=== PATIENT | male | born 1940 | race Caucasian/White ===

== ENCOUNTER 2018-05-19 11:30 | Day surgery (SDC) | payer MEDICARE, OTHER ==
[2018-05-19] VITALS (14 sets, daily range): BP systolic 126–151; BP diastolic 67–86
[~2018-05-19] VITALS: Ht 170.2 cm; Wt 71.9 kg
[2018-05-19] MEDS ORDERED: diphenhydrAMINE 25mg capsule PO PRN (11:50)
[2018-05-19] MEDS ORDERED: normal saline 1,000 ML IV SCH (11:50)
[2018-05-19] MEDS ORDERED: NIAC500T5 PO (12:09)
[2018-05-19] MEDS ORDERED: SIMV40TA4 PO (12:09)
[2018-05-19] MEDS ORDERED: LABE100T5 PO (12:09)
[2018-05-19] MEDS ORDERED: NIFE90TA44 PO (12:09)
[2018-05-19] MEDS ORDERED: BENA40TA73 PO (12:09)
[2018-05-19] MEDS ORDERED: POTA10TA10 PO (12:09)
[2018-05-19] MEDS ORDERED: IRON (12:09)
[2018-05-19] MEDS ORDERED: ASPI-611 PO (12:09)
[2018-05-19 12:47] LABS: BASOPHILS % (AUTO) 0.4 % (0-1); EOSINOPHILS # (AUTO) 0.3 X10'3 (0-0.9); EOSINOPHILS % (AUTO) 5.4 % (0-6); HEMATOCRIT 42.1 % (42.0-52.0); HEMOGLOBIN 14.1 g/dl (14.0-17.9); LYMPHOCYTES # (AUTO) 0.2 X10'3 (1.1-4.8); LYMPHOCYTES % (AUTO) 3.8 % (21-51); MEAN CORPUSCULAR HEMOGLOBIN 32.2 PG (27.0-31.0); MEAN CORPUSCULAR HGB CONC 33.4 g/dL (33.0-36.5); MEAN CORPUSCULAR VOLUME 96.5 FL (78-98); MEAN PLATELET VOLUME 8.1 FL (7.4-10.4); MONOCYTES # (AUTO) 0.8 X10'3 (0-0.9); MONOCYTES % (AUTO) 15.1 % (2-12); NEUTROPHILS # (AUTO) 3.9 X10'3 (1.8-7.7); NEUTROPHILS % (AUTO) 75.3 % (42-75); PLATELET COUNT 133 X10'3 (140-440); RED BLOOD COUNT 4.36 X10'6 (4.70-6.10); RED CELL DISTRIBUTION WIDTH 17.2 % (11.5-14.5); WHITE BLOOD COUNT 5.2 X10'3 (4.5-11.0)
[2018-05-19 12:54] LABS: ALBUMIN 3.8 G/DL (3.4-5.0); ANION GAP 11 (8-16); BLOOD UREA NITROGEN 74 MG/DL (7-18); BUN/CREATININE RATIO 8.6 (5.4-32.0); CALCIUM 9.7 MG/DL (8.5-10.1); CHLORIDE 97 MMOL/L (99-107); CREATININE 8.65 MG/DL (0.60-1.10); GLUCOSE 105 MG/DL (70-104); MAGNESIUM 2.4 MG/DL (1.5-2.4); POTASSIUM 4.4 MMOL/L (3.5-5.1); SODIUM 140 MMOL/L (135-145); TOTAL CARBON DIOXIDE 32.3 MMOL/L (24-32); eGFR 6 ML/MIN
[2018-05-19 12:57] LABS: PROTHROMBIN TIME 9.7 SECONDS (9.0-12.0)
[2018-05-19] MEDS ORDERED: LIDOcaine 1% (10mg/ml)w/preservative injection 20ml MDV ONE (13:26)
[2018-05-19] MEDS ORDERED: fentaNYL/PF 50MCG/1 ML 2ML syringe ONE ×5 (13:26→15:00)
[2018-05-19] MEDS ORDERED: iohexol 350 MG/ML 50ML vial IV ONE (13:26)
[2018-05-19] MEDS ORDERED: midazolam 2 mg/2 ml injection ONE ×4 (13:26→14:50)
[2018-05-19] MEDS ORDERED: iohexol 350MG/ML 100ml bottle IV ONE (13:26)
[2018-05-19] MEDS ORDERED: proCHLORperazine 10 MG/2 ml inj ONE (13:42)
[2018-05-19] MEDS ORDERED: heparin 1,000unit/ml 10ml vial 10 ML ONE (14:11)
[2018-05-19 14:12] LABS: BASOPHILS % (MANUAL) 1 % (0-1); EOSINOPHILS % (MANUAL) 6 % (0-6); LYMPHOCYTES % (MANUAL) 4 % (21-51); MONOCYTES % (MANUAL) 12 % (2-12); TOTAL CELLS COUNTED 200
[2018-05-19 14:13] LABS: NEUTROPHILS % (MANUAL) 77 % (42-75)
[2018-05-19 14:15] LABS: ANISOCYTOSIS 1+; PLATELET ESTIMATE DECREASED
[2018-05-19 14:16] LABS: HYPERSEGMENTED NEUTROPHILS 2+
[2018-05-19] MEDS ORDERED: iohexol 350 MG/1 ML 200ml bottle ONE (14:21)
[2018-05-19] MEDS ORDERED: ticagrelor 90mg tablet ONE (15:07)
[2018-05-19] MEDS ORDERED: proCHLORperazine 10 MG/2 ml inj IV PRN (15:55)
[2018-05-19] MEDS ORDERED: ondansetron/PF 4mg/2ml inj IV PRN (15:55)
[2018-05-19] MEDS ORDERED: HYDROcodone/acetaminophen 5mg/325mg tablet PO PRN (15:55)
[2018-05-19] MEDS ORDERED: HYDROcodone/acetaminophen 10/325mg tab PO PRN (15:55)
[2018-05-19] MEDS ORDERED: acetaminophen 325mg tablet PO PRN (15:55)
== END 2018-05-19 20:30 | disposition home or self-care (01) ==
LOC: SSTAY O 11:30
PROVIDERS: ATTEND Internal Medicine Cardiovascular Disease
DX: I25.10 Atherosclerotic heart disease of native coronary artery without angina pectoris (principal); I27.20 Pulmonary hypertension, unspecified; E78.5 Hyperlipidemia, unspecified; N18.9 Chronic kidney disease, unspecified; Z99.2 Dependence on renal dialysis
CPT/HCPCS: 36415; 80048; 83735; 85025; 85610; 93005; 93460; 99152; 99153; A6257; C1874; C9600; C9601; J0780; J1644; J2001; J2250; J3010; J7030; Q0163; Q9967; 92920; 93458; A4620; C1725; C1760; C1769; C1894